=== PATIENT | female | born 1970 | race Caucasian/White ===

== ENCOUNTER → 2021-02-13 | Outpatient (CLI) | payer OTHER | END | disposition home or self-care (01) | LOC: MAMO-SONO 08:45 → SONOGRAMA 08:55 | PROVIDERS: ATTEND Internal Medicine | DX: K50.90 Crohn's disease, unspecified, without complications (principal); E03.8 Other specified hypothyroidism; Z68.34 Body mass index [BMI] 34.0-34.9, adult; E04.2 Nontoxic multinodular goiter ==